=== PATIENT | female | born 1990 | race Hispanic/Latino ===

== ENCOUNTER 2021-08-13 15:42 | Day surgery (SDC) | payer BC ==
[2021-08-13 16:26] VITALS: BMI 29.2
[2021-08-13] MEDS ORDERED: hydrALAZINE 20 MG/ML VIAL SLOW IVP PRN (17:17)
== END 2021-08-13 17:25 | disposition home or self-care (01) ==
LOC: CSHLD/OP 15:42
PROVIDERS: ATTEND Obstetrics & Gynecology
DX: O9A.213 Injury, poisoning and certain other consequences of external causes complicating pregnancy, third trimester (principal); S92.901A Unspecified fracture of right foot, initial encounter for closed fracture; Z3A.33 33 weeks gestation of pregnancy; W10.9XXA Fall (on) (from) unspecified stairs and steps, initial encounter; Y99.0 Civilian activity done for income or pay

== ENCOUNTER 2021-09-17 19:00 | Inpatient (IN) | payer BC ==
[~2021-09-17 19:00] MED LIST: Bupivacaine 0.25% HCL 30 ML VIAL ONE
[2021-09-17 20:33] VITALS: BMI 31.9
[2021-09-17] MEDS ORDERED: Misoprostol 200 MCG TAB PR PRN (20:52)
[2021-09-17] MEDS ORDERED: Ibuprofen 800 MG TAB PO PRN (20:52)
[2021-09-17] MEDS ORDERED: Diphenoxylate HCl/Atropine Tablet PO PRN ×2 (20:52)
[2021-09-17] MEDS ORDERED: Ondansetron PF 4 MG/2 ML Vial IVP PRN (20:52)
[2021-09-17] MEDS ORDERED: hydrALAZINE 20 MG/ML VIAL SLOW IVP PRN (20:52)
[2021-09-17] MEDS ORDERED: Zolpidem Tartrate 5 MG TAB PO PRN (20:52)
[2021-09-17] MEDS ORDERED: Carboprost 250 MCG/ML AMP IM PRN (20:52)
[2021-09-17] MEDS ORDERED: HYDROcodone/Acetaminophen 5/325 mg Tablet PO PRN (20:52)
[2021-09-17] MEDS ORDERED: Promethazine HCl 25 MG/ML VIAL IM PRN (20:52)
[2021-09-17] MEDS ORDERED: Butorphanol Tartrate 1 MG/ML VIAL SLOW IVP PRN (20:52)
[2021-09-17] MEDS ORDERED: Lidocaine 1% (PF) 30 ML VIAL SC PRN (20:52)
[2021-09-17] MEDS ORDERED: Acetaminophen 500 MG TAB PO PRN (20:52)
[2021-09-17] MEDS ORDERED: NS w/ Oxytocin 30 units 500 ML IV SCH (21:00)
[2021-09-17 21:43] LABS: Hemoglobin 11.2 g/dL (12.0-15.5); Mean Corpuscular HGB CONC 35.7 g/dL (32.0-36.0); Mean Corpuscular Hemoglobin 31.8 pg (27.0-33.0); Mean Corpuscular Volume 89.2 fl (81.6-98.3); Mean Platelet Volume 9.9 fl (7.4-10.4); Platelet Count 241 10x3/uL (150-450); RBC Distribution Width 13.3 % (11.5-14.5); Red Blood Cell (RBC) Count 3.52 10x6/uL (3.90-5.03); White Blood Cell (WBC) Count 7.6 10x3/uL (3.5-10.5)
[2021-09-17] MEDS: Misoprostol 100 MCG TAB VAG SCH (21:56)
[2021-09-17 22:13] LABS: Hep B Surf Ag Non-Reactive S/CO (NonReactive); Syphilis Antibody Nonreactive (Nonreactive); Syphilis Antibody Index 0.03 S/CO (<1.00 Non-Reactive)
[2021-09-18 00:47] LABS: SARS-CoV-2 NAA Rapid Test Not Detected (NotDetected)
[2021-09-18] MEDS: Misoprostol 100 MCG TAB VAG SCH ×6 (01:04→20:43)
[2021-09-19] MEDS: NS w/ Oxytocin 30 units 500 ML IV SCH ×2 (05:53→16:49)
[2021-09-19] MEDS: Lactated Ringer's 1,000 ML IV SCH (05:54)
[2021-09-19] MEDS ORDERED: Fentanyl 2 mcg/Bup 0.1% Cadd 100 ML ONE (10:29)
[2021-09-19] MEDS ORDERED: diphenhydrAMINE 50 MG/ML VIAL IVP PRN (10:48)
[2021-09-19] MEDS ORDERED: Moisturizing Cream (Eucerin) 113 GM JAR TOP PRN (10:48)
[2021-09-19] MEDS ORDERED: Naloxone HCl 0.4 mg/ml Vial IVP PRN ×2 (10:48)
[2021-09-19] MEDS ORDERED: Promethazine HCl 25 MG/ML VIAL IM PRN ×2 (10:48→19:34)
[2021-09-19] MEDS ORDERED: Acetaminophen 325 MG TAB PO PRN (10:48)
[2021-09-19] MEDS ORDERED: Lactated Ringer's 500 ML IV PRN (10:48)
[2021-09-19] MEDS ORDERED: ePHEDrine Sulfate 50 MG/10 ML VIAL SLOW IVP PRN (10:48)
[2021-09-19] MEDS ORDERED: Ondansetron PF 4 MG/2 ML Vial IVP PRN ×2 (10:48→19:34)
[2021-09-19] MEDS ORDERED: Communication Order-Pharmacy FS SCH (11:00)
[2021-09-19] MEDS ORDERED: Fentanyl 2 mcg/Bupivacaine 0.1% Cassette 100 ML EPIDURAL SCH (11:00)
[2021-09-19] MEDS ORDERED: Bisacodyl 10 MG SUPP PR PRN (19:34)
[2021-09-19] MEDS ORDERED: HYDROcodone/Acetaminophen 5/325 mg Tablet PO PRN (19:34)
[2021-09-19] MEDS ORDERED: hydrALAZINE 20 MG/ML VIAL SLOW IVP PRN (19:34)
[2021-09-19] MEDS ORDERED: NS w/ Oxytocin 30 units 500 ML IV SCH (19:34)
[2021-09-19] MEDS ORDERED: Lanolin Ointment 7 GM TUBE TOP PRN (19:34)
[2021-09-19] MEDS ORDERED: Benzocaine-Menthol 82.5 ML CAN TOP PRN (19:34)
[2021-09-19] MEDS ORDERED: Boostrix 0.5 ML (Tdap) VIAL IM ONE (19:34)
[2021-09-19] MEDS ORDERED: Zolpidem Tartrate 5 MG TAB PO PRN (19:34)
[2021-09-19] MEDS ORDERED: Varicella virus, LIVE 0.5 ML VIAL SC ONE (19:34)
[2021-09-19] MEDS ORDERED: Measles/Mumps/Rubella 10 MCG/0.5 ML VIAL SC ONE (19:34)
[2021-09-19] MEDS ORDERED: Preparation H Ointment 28 GM TUBE PR PRN (19:34)
[2021-09-19] MEDS ORDERED: Milk Of Magnesia 30 ML UDCUP PO PRN (19:34)
[2021-09-19] MEDS ORDERED: Misoprostol 200 MCG TAB VAG PRN (19:34)
[2021-09-19] MEDS: Docusate 100 MG CAP PO SCH (21:53)
[2021-09-19] MEDS: Ibuprofen 800 MG TAB PO SCH (21:53)
[2021-09-20 05:26] LABS: Hemoglobin 11.3 g/dL (12.0-15.5); Mean Corpuscular HGB CONC 36.1 g/dL (32.0-36.0); Mean Corpuscular Hemoglobin 31.9 pg (27.0-33.0); Mean Corpuscular Volume 88.4 fl (81.6-98.3); Mean Platelet Volume 9.9 fl (7.4-10.4); Platelet Count 208 10x3/uL (150-450); RBC Distribution Width 13.2 % (11.5-14.5); Red Blood Cell (RBC) Count 3.54 10x6/uL (3.90-5.03); White Blood Cell (WBC) Count 10.8 10x3/uL (3.5-10.5)
[2021-09-20] MEDS: Ibuprofen 800 MG TAB PO SCH ×3 (05:48→22:01)
[2021-09-20] MEDS: Ferrous Sulfate 325 MG TAB PO SCH ×2 (08:01→18:52)
[2021-09-20] MEDS: Misoprostol 100 MCG TAB VAG SCH ×3 (08:03→08:07)
[2021-09-20] MEDS: Lactated Ringer's 1,000 ML IV SCH ×3 (08:03→08:08)
[2021-09-20] MEDS: Prenatal Vitamin 1 TAB PO SCH (09:00)
[2021-09-20] MEDS: Docusate 100 MG CAP PO SCH ×2 (09:00→22:01)
[2021-09-21] MEDS: Ibuprofen 800 MG TAB PO SCH ×2 (06:13→14:16)
[2021-09-21] MEDS: Ferrous Sulfate 325 MG TAB PO SCH ×2 (08:51→19:01)
[2021-09-21] MEDS: Docusate 100 MG CAP PO SCH (08:57)
[2021-09-21] MEDS: Prenatal Vitamin 1 TAB PO SCH (08:57)
[2021-09-21 18:41] VITALS: BP 120/74; TEMP 98.6
== END 2021-09-21 19:30 | disposition home or self-care (01) | DRG 807 ==
LOC: CSHLD 19:12 → CSHPP 09-19 18:25
PROVIDERS: ADMIT Obstetrics & Gynecology; ATTEND Obstetrics & Gynecology
PROC: 10E0XZZ Delivery of Products of Conception, External Approach (ICD-10-PCS; principal; 2021-09-19)
DX: O13.4 Gestational [pregnancy-induced] hypertension without significant proteinuria, complicating childbirth (principal); Z37.0 Single live birth; Z20.822 Contact with and (suspected) exposure to COVID-19; Z3A.38 38 weeks gestation of pregnancy; O70.0 First degree perineal laceration during delivery
CPT/HCPCS: 36415; 85027; 86780; 86850; 86900; 86901; 87340; J0595; J2405; J2590; J7120; S0020; U0002